=== PATIENT | male | born 1985 | race Caucasian/White ===

== ENCOUNTER 2017-10-22 05:49 | Inpatient (IN) | payer BC ==
[~2017-10-22] VITALS: Ht 182.9 cm; Wt 61.2 kg
[2017-10-22 06:00] VITALS: BP_SYST 138
[2017-10-22 06:35] LABS: BILIRUBIN,URINE 2+ (NEGATIVE); BLOOD, URINE NEGATIVE (NEGATIVE); CLARITY/URINE CLEAR (CLEAR); COLOR,URINE YELLOW (YELLOW); GLUCOSE,URINE NEGATIVE (NEGATIVE); KETONES,URINE 1+ (NEGATIVE); LEUKOCYTE ESTERASE ,URINE NEGATIVE (NEGATIVE); NITRITE, URINE NEGATIVE (NEGATIVE); PH,URINE 5.5 (5.0-8.0); PROTEIN URINE NEGATIVE (NEGATIVE); UROBILINOGEN,URINE 0.2 (0.2-1.0)
[2017-10-22 06:46] LABS: BASOPHILS % (AUTO) 0.5 % (0.0-2.0); EOSINOPHILS # (AUTO) 0.2 K/uL (0.0-0.4); EOSINOPHILS % (AUTO) 2.3 % (0.0-4.0); HEMATOCRIT 46.2 % (36-54); HEMOGLOBIN 15.4 g/dL (14.0-18.0); LYMPHOCYTES # (AUTO) 1.1 K/uL (1.0-5.5); LYMPHOCYTES % (AUTO) 17.1 % (20.5-51.5); MEAN CORPUSCULAR HEMOGLOBIN 30 pg (27-31); MEAN CORPUSCULAR HGB CONC 33 % (32-36); MEAN CORPUSCULAR VOLUME 88 fL (79.0-98.0); MONOCYTES # (AUTO) 0.3 K/uL (0.0-1.0); NEUTROPHILS # (AUTO) 5.1 K/uL (1.8-7.7); NEUTROPHILS % (AUTO) 75.1 % (40.0-70.0); PLATELET COUNT (AUTO) 171 K/uL (130-430); RED BLOOD CELL COUNT(AUTO) 5.22 MIL/uL (4.2-6.2); RED CELL DISTRIBUTION WIDTH 12.4 % (9.0-15.0); WHITE BLOOD COUNT (AUTO) 6.7 K/uL (4.8-10.8)
[2017-10-22 07:01] LABS: CALCIUM 9.4 mg/dL (8.4-11.0); CREATININE 0.86 mg/dL (0.55-1.30); POTASSIUM 3.5 mmol/L (3.5-5.1)
[2017-10-22 07:52] LABS: BACTERIA,URINE FEW /HPF (None Seen); MUCUS,URINE None Seen /LPF (None Seen); RBC,URINE 0-3 /HPF (0-3); WBC,URINE 0-3 /HPF (0-3)
[2017-10-22 08:37] VITALS: BP_SYST 136
[2017-10-22] MEDS ORDERED: METOCLOPRAMIDE HCL 10 MG/2 ML VIAL IVP PRN (09:00)
[2017-10-22] MEDS: D5NS 1,000 ML IV SCH (09:23)
[2017-10-22] MEDS: metroNIDAZOLE 500 mg/NS 100 ML IV SCH ×2 (09:23→18:27)
[2017-10-22] MEDS: LEVOFLOXACIN 500 MG/D5W 100 ML IV SCH (11:02)
[2017-10-22] MEDS: ACETAMINOPHEN 325 MG TABLET PO PRN (11:03)
[2017-10-22 12:00] VITALS: BP_SYST 121
[2017-10-22 16:00] VITALS: BP_SYST 125
[2017-10-22 20:30] VITALS: BP_SYST 136
[2017-10-22 23:18] LABS: BARBITURATE, URINE NEGATIVE (NEG <=200); BENZODIAZEPINE, URINE NEGATIVE (NEG <=150); CANNABINOID, URINE NEGATIVE (NEG <=50); COCAINE, URINE NEGATIVE (NEG <=150); METHAMPHETAMINES SCREEN,URINE NEGATIVE (NEG <=500); OPIATE, URINE NEGATIVE (NEG <=100); PHENCYCLIDINE SCREEN,URINE NEGATIVE (NEG <=25); UR TRICYCLIC ANTIDEPRESSANTS NEGATIVE (NEG <=300); URINE AMPHETAMINE NEGATIVE (NEG <=500); URINE METHADONE NEGATIVE (NEG <=200); URINE OXYCODONE SCREEN NEGATIVE (NEG <=100); URINE PROPOXYPHENE SCREEN NEGATIVE (NEG <=300)
[2017-10-23 01:17] VITALS: BP_SYST 121
[2017-10-23] MEDS: D5NS 1,000 ML IV SCH ×2 (01:21→18:21)
[2017-10-23] MEDS: metroNIDAZOLE 500 mg/NS 100 ML IV SCH ×3 (01:23→18:20)
[2017-10-23 06:40] LABS: ALBUMIN 3.2 g/dL (3.4-4.8); BILIRUBIN,DIRECT 3.3 mg/dL (0.0-0.3); TOTAL BILIRUBIN 4.5 mg/dL (0.0-1.0)
[2017-10-23 06:42] LABS: PROTHROMBIN TIME 10.3 SECS (9.5-12.5)
[2017-10-23] MEDS: LEVOFLOXACIN 500 MG/D5W 100 ML IV SCH (08:34)
[2017-10-23 08:35] VITALS: BP_SYST 115
[2017-10-23 12:00] VITALS: BP_SYST 122
[2017-10-23 13:17] LABS: HEPATITIS B CORE AB, IgM Negative (Negative); HEPATITIS B CORE AB, TOTAL Negative (Negative)
[2017-10-23 17:32] VITALS: BP_SYST 119
[2017-10-23 19:30] VITALS: BP_SYST 117
[2017-10-24] MEDS: metroNIDAZOLE 500 mg/NS 100 ML IV SCH ×3 (00:47→17:33)
[2017-10-24] MEDS: D5NS 1,000 ML IV SCH ×2 (03:16→14:16)
[2017-10-24] MEDS: MORPHINE 2 MG/ML INJ. SYRINGE IVP PRN ×2 (03:34→08:06)
[2017-10-24 07:03] LABS: PROTHROMBIN TIME 10.5 SECS (9.5-12.5)
[2017-10-24 08:13] VITALS: BP_SYST 120
[2017-10-24] MEDS: LEVOFLOXACIN 500 MG/D5W 100 ML IV SCH (09:17)
[2017-10-24 09:50] LABS: HEPATITIS A AB, IgM Negative (Negative)
[2017-10-24 12:30] VITALS: BP_SYST 128
[2017-10-24] MEDS ORDERED: IOHEXOL 100 ML IV ONE (15:13)
[2017-10-24] MEDS ORDERED: LR 1,000 ML IV ONE (15:52)
[2017-10-24] MEDS ORDERED: fentaNYL CITRATE/PF 100 MCG/2 ML AMP IVP PRN (16:00)
[2017-10-24] MEDS ORDERED: DIPHENHYDRAMINE INJ 50 MG/ML VIAL IVP PRN (16:00)
[2017-10-24] MEDS ORDERED: NALBUPHINE HCL 10 MG/ML AMP IVP PRN (16:00)
[2017-10-24] MEDS ORDERED: ONDANSETRON HCL 4 MG/2 ML VIAL IVP PRN ×2 (16:00)
[2017-10-24] MEDS ORDERED: ePHEDrine sulfate 50 MG/ML VIAL IVP PRN (16:00)
[2017-10-24] MEDS ORDERED: NALOXONE HCL 0.4 MG/ML AMP (NARCAN) IVP PRN (16:00)
[2017-10-24] MEDS ORDERED: KETOROLAC TROMETHAMINE 30 MG VIAL IM PRN (16:00)
[2017-10-24 19:55] VITALS: BP_SYST 106
[2017-10-25] MEDS: metroNIDAZOLE 500 mg/NS 100 ML IV SCH ×3 (00:13→16:36)
[2017-10-25] MEDS: D5NS 1,000 ML IV SCH ×2 (00:14→16:36)
[2017-10-25 01:34] VITALS: BP_SYST 101
[2017-10-25 07:00] LABS: PROTHROMBIN TIME 10.6 SECS (9.5-12.5)
[2017-10-25 07:03] LABS: ALBUMIN 3.1 g/dL (3.4-4.8); BILIRUBIN,DIRECT 1.4 mg/dL (0.0-0.3); CALCIUM 8.7 mg/dL (8.4-11.0); CREATININE 0.91 mg/dL (0.55-1.30); POTASSIUM 3.5 mmol/L (3.5-5.1); TOTAL BILIRUBIN 2.1 mg/dL (0.0-1.0)
[2017-10-25 07:18] LABS: BASOPHILS % (AUTO) 0.3 % (0.0-2.0); EOSINOPHILS % (AUTO) 0.5 % (0.0-4.0); HEMATOCRIT 40.2 % (36-54); HEMOGLOBIN 13.6 g/dL (14.0-18.0); LYMPHOCYTES % (AUTO) 10.9 % (20.5-51.5); MEAN CORPUSCULAR HEMOGLOBIN 31 pg (27-31); MEAN CORPUSCULAR HGB CONC 34 % (32-36); MEAN CORPUSCULAR VOLUME 90 fL (79.0-98.0); MONOCYTES # (AUTO) 0.5 K/uL (0.0-1.0); NEUTROPHILS # (AUTO) 7.4 K/uL (1.8-7.7); NEUTROPHILS % (AUTO) 82.3 % (40.0-70.0); PLATELET COUNT (AUTO) 146 K/uL (130-430); RED BLOOD CELL COUNT(AUTO) 4.47 MIL/uL (4.2-6.2); RED CELL DISTRIBUTION WIDTH 12.8 % (9.0-15.0); WHITE BLOOD COUNT (AUTO) 8.9 K/uL (4.8-10.8)
[2017-10-25 08:00] VITALS: BP_SYST 95
[2017-10-25] MEDS: LEVOFLOXACIN 500 MG/D5W 100 ML IV SCH (09:11)
[2017-10-25 12:34] VITALS: BP_SYST 118
[2017-10-25] MEDS ORDERED: MEPERIDINE HCL/PF 50 MG/ML AMP ONE ×2 (13:32→14:40)
[2017-10-25] MEDS ORDERED: MEPERIDINE HCL/PF 25 MG/ML DISP.SYRIN IVP PRN (14:15)
[2017-10-25] MEDS ORDERED: KETOROLAC TROMETHAMINE 30 MG VIAL IVP ONE (14:15)
[2017-10-25] MEDS ORDERED: HYDROmorphone 1 MG INJ. 1 MG/ML AMPUL IVP PRN (14:15)
[2017-10-25] MEDS ORDERED: MIDAZOLAM HCL 5 MG/5 ML VIAL IVP PRN (14:15)
[2017-10-25] MEDS ORDERED: fentaNYL CITRATE/PF 100 MCG/2 ML AMP IVP PRN (14:15)
[2017-10-25] MEDS ORDERED: ONDANSETRON HCL 4 MG/2 ML VIAL IVP ONE (14:15)
[2017-10-25] MEDS ORDERED: NALOXONE HCL 0.4 MG/ML AMP (NARCAN) IVP ONE (14:15)
[2017-10-25] MEDS ORDERED: MEPERIDINE HCL/PF 50 MG/ML AMP IVP ONE (14:40)
[2017-10-25] MEDS: MORPHINE 4 MG/ML INJ. SYRINGE IVP PRN ×2 (16:35→22:27)
[2017-10-25 17:00] VITALS: BP_SYST 121
[2017-10-25] MEDS: MORPHINE 2 MG/ML INJ. SYRINGE IVP PRN (20:15)
[2017-10-25 20:20] VITALS: BP_SYST 107
[2017-10-25] MEDS: ONDANSETRON HCL 4 MG/2 ML VIAL IVP PRN (22:28)
[2017-10-26] MEDS: metroNIDAZOLE 500 mg/NS 100 ML IV SCH ×3 (00:45→17:01)
[2017-10-26 01:20] VITALS: BP_SYST 108
[2017-10-26] MEDS: MORPHINE 2 MG/ML INJ. SYRINGE IVP PRN ×3 (02:25→18:47)
[2017-10-26] MEDS: MORPHINE 4 MG/ML INJ. SYRINGE IVP PRN ×3 (04:22→17:01)
[2017-10-26] MEDS: D5NS 1,000 ML IV SCH ×2 (05:26→21:52)
[2017-10-26 07:05] LABS: BASOPHILS % (AUTO) 0.3 % (0.0-2.0); EOSINOPHILS % (AUTO) 0.1 % (0.0-4.0); HEMATOCRIT 34.3 % (36-54); HEMOGLOBIN 11.9 g/dL (14.0-18.0); LYMPHOCYTES # (AUTO) 1.1 K/uL (1.0-5.5); LYMPHOCYTES % (AUTO) 10.7 % (20.5-51.5); MEAN CORPUSCULAR HEMOGLOBIN 31 pg (27-31); MEAN CORPUSCULAR HGB CONC 35 % (32-36); MEAN CORPUSCULAR VOLUME 89 fL (79.0-98.0); MONOCYTES # (AUTO) 0.6 K/uL (0.0-1.0); MONOCYTES % (AUTO) 6.5 % (1.7-9.3); NEUTROPHILS # (AUTO) 8.2 K/uL (1.8-7.7); NEUTROPHILS % (AUTO) 82.4 % (40.0-70.0); PLATELET COUNT (AUTO) 141 K/uL (130-430); RED BLOOD CELL COUNT(AUTO) 3.84 MIL/uL (4.2-6.2); RED CELL DISTRIBUTION WIDTH 12.7 % (9.0-15.0); WHITE BLOOD COUNT (AUTO) 9.9 K/uL (4.8-10.8)
[2017-10-26 07:23] LABS: CREATININE 1.05 mg/dL (0.55-1.30); POTASSIUM 3.6 mmol/L (3.5-5.1)
[2017-10-26 07:37] LABS: ALBUMIN 2.8 g/dL (3.4-4.8); TOTAL BILIRUBIN 1.6 mg/dL (0.0-1.0)
[2017-10-26 08:00] VITALS: BP_SYST 120
[2017-10-26] MEDS: LEVOFLOXACIN 500 MG/D5W 100 ML IV SCH (10:30)
[2017-10-26 12:45] VITALS: BP_SYST 116
[2017-10-26] MEDS ORDERED: DEXAMETHASONE SOD PHOSPHATE 4 MG/ML VIAL IVP ONE (16:30)
[2017-10-26] MEDS ORDERED: GLYCOPYRROLATE 0.2 MG/ML VIAL IJ ONE (16:30)
[2017-10-26] MEDS ORDERED: MEPERIDINE HCL/PF 25 MG/ML DISP.SYRIN IVP ONE (16:30)
[2017-10-26] MEDS ORDERED: METOCLOPRAMIDE HCL 10 MG/2 ML VIAL IVP ONE (16:30)
[2017-10-26] MEDS ORDERED: NS IRRIG SOLN 1000 ML IR ONE (16:30)
[2017-10-26] MEDS ORDERED: SEVOFLURANE 15 MIN GAS INH ONE (16:30)
[2017-10-26] MEDS ORDERED: SUCCINYLCHOLINE CHLORIDE 20 MG/ML(QUELICIN) IVP ONE (16:30)
[2017-10-26] MEDS ORDERED: ONDANSETRON HCL 4 MG/2 ML VIAL IVP ONE (16:30)
[2017-10-26] MEDS ORDERED: LR 1,000 ML IV.SOLN IV ONE (16:30)
[2017-10-26] MEDS ORDERED: fentaNYL CITRATE 250 MCG/5 ML AMP IV ONE (16:30)
[2017-10-26] MEDS ORDERED: PROPOFOL 200MG/ 20ML VIAL (DIPRIVAN) IV ONE (16:30)
[2017-10-26 17:00] VITALS: BP_SYST 128
[2017-10-26 20:15] VITALS: BP_SYST 119
[2017-10-26] MEDS: ACETAMINOPHEN 325 MG TABLET PO PRN (21:50)
[2017-10-27 00:57] VITALS: BP_SYST 123
[2017-10-27] MEDS: metroNIDAZOLE 500 mg/NS 100 ML IV SCH ×3 (01:10→17:54)
[2017-10-27] MEDS: MORPHINE SULFATE 10 MG/ML VIAL IVP PRN ×3 (04:00→20:12)
[2017-10-27 06:47] LABS: BASOPHILS % (AUTO) 0.2 % (0.0-2.0); CALCIUM 8.7 mg/dL (8.4-11.0); CREATININE 0.87 mg/dL (0.55-1.30); EOSINOPHILS % (AUTO) 0.1 % (0.0-4.0); HEMOGLOBIN 11.9 g/dL (14.0-18.0); LYMPHOCYTES # (AUTO) 0.8 K/uL (1.0-5.5); LYMPHOCYTES % (AUTO) 6.5 % (20.5-51.5); MEAN CORPUSCULAR HEMOGLOBIN 31 pg (27-31); MEAN CORPUSCULAR HGB CONC 34 % (32-36); MEAN CORPUSCULAR VOLUME 90 fL (79.0-98.0); MONOCYTES % (AUTO) 8.2 % (1.7-9.3); NEUTROPHILS # (AUTO) 10.4 K/uL (1.8-7.7); PLATELET COUNT (AUTO) 154 K/uL (130-430); POTASSIUM 3.2 mmol/L (3.5-5.1); RED BLOOD CELL COUNT(AUTO) 3.88 MIL/uL (4.2-6.2); RED CELL DISTRIBUTION WIDTH 12.2 % (9.0-15.0); TOTAL BILIRUBIN 1.8 mg/dL (0.0-1.0); WHITE BLOOD COUNT (AUTO) 12.2 K/uL (4.8-10.8)
[2017-10-27 08:00] VITALS: BP_SYST 125
[2017-10-27] MEDS: MORPHINE 2 MG/ML INJ. SYRINGE IVP PRN (08:25)
[2017-10-27] MEDS: LEVOFLOXACIN 500 MG/D5W 100 ML IV SCH (09:56)
[2017-10-27 11:36] VITALS: BP_SYST 133
[2017-10-27] MEDS ORDERED: POTASSIUM CHLORIDE 20 MEQ TAB.PRT.SR PO ONE (12:30)
[2017-10-27] MEDS: D5NS 1,000 ML IV SCH (12:56)
[2017-10-27] MEDS ORDERED: DOCUSATE SODIUM 250 MG CAPSULE PO ONE (13:00)
[2017-10-27 15:48] VITALS: BP_SYST 110
[2017-10-27 20:05] VITALS: BP_SYST 124
[2017-10-27] MEDS: DOCUSATE SODIUM 250 MG CAPSULE PO SCH (20:11)
[2017-10-27 23:24] VITALS: BP_SYST 122
[2017-10-28] MEDS: metroNIDAZOLE 500 mg/NS 100 ML IV SCH ×3 (00:48→16:06)
[2017-10-28] MEDS: ACETAMINOPHEN 325 MG TABLET PO PRN (02:21)
[2017-10-28 06:57] LABS: BASOPHILS % (AUTO) 0.3 % (0.0-2.0); EOSINOPHILS % (AUTO) 0.1 % (0.0-4.0); HEMATOCRIT 36.1 % (36-54); HEMOGLOBIN 12.2 g/dL (14.0-18.0); LYMPHOCYTES # (AUTO) 1.4 K/uL (1.0-5.5); LYMPHOCYTES % (AUTO) 9.5 % (20.5-51.5); MEAN CORPUSCULAR HEMOGLOBIN 31 pg (27-31); MEAN CORPUSCULAR HGB CONC 34 % (32-36); MEAN CORPUSCULAR VOLUME 90 fL (79.0-98.0); MONOCYTES # (AUTO) 1.2 K/uL (0.0-1.0); MONOCYTES % (AUTO) 8.3 % (1.7-9.3); NEUTROPHILS # (AUTO) 12.4 K/uL (1.8-7.7); NEUTROPHILS % (AUTO) 81.8 % (40.0-70.0); PLATELET COUNT (AUTO) 176 K/uL (130-430); RED CELL DISTRIBUTION WIDTH 12.1 % (9.0-15.0); WHITE BLOOD COUNT (AUTO) 14.9 K/uL (4.8-10.8)
[2017-10-28 07:09] LABS: CALCIUM 9.2 mg/dL (8.4-11.0); CREATININE 1.04 mg/dL (0.55-1.30); POTASSIUM 3.6 mmol/L (3.5-5.1)
[2017-10-28 07:35] LABS: TOTAL BILIRUBIN 2.1 mg/dL (0.0-1.0)
[2017-10-28 08:01] VITALS: BP_SYST 111
[2017-10-28] MEDS: HYDROcodone/ACETAMIN 5-325 MG TAB (NORCO/ VICODIN) PO PRN ×2 (08:17→21:32)
[2017-10-28] MEDS: DOCUSATE SODIUM 250 MG CAPSULE PO SCH ×2 (08:17→21:31)
[2017-10-28] MEDS ORDERED: BISACODYL 10 MG/SUPPOSITORY RC ONE (08:30)
[2017-10-28] MEDS: LEVOFLOXACIN 500 MG/D5W 100 ML IV SCH (09:01)
[2017-10-28 12:00] VITALS: BP_SYST 115
[2017-10-28] MEDS: ONDANSETRON HCL 4 MG/2 ML VIAL IVP PRN (15:14)
[2017-10-28 16:00] VITALS: BP_SYST 118
[2017-10-28 21:30] VITALS: BP_SYST 122
[2017-10-28 23:48] VITALS: BP_SYST 114
[2017-10-29] MEDS: HYDROcodone/ACETAMIN 5-325 MG TAB (NORCO/ VICODIN) PO PRN ×2 (05:58→13:51)
[2017-10-29 07:49] LABS: BASOPHILS % (AUTO) 0.3 % (0.0-2.0); EOSINOPHILS # (AUTO) 0.1 K/uL (0.0-0.4); HEMATOCRIT 34.7 % (36-54); HEMOGLOBIN 11.9 g/dL (14.0-18.0); LYMPHOCYTES # (AUTO) 1.1 K/uL (1.0-5.5); LYMPHOCYTES % (AUTO) 10.4 % (20.5-51.5); MEAN CORPUSCULAR HEMOGLOBIN 31 pg (27-31); MEAN CORPUSCULAR HGB CONC 34 % (32-36); MEAN CORPUSCULAR VOLUME 90 fL (79.0-98.0); MONOCYTES # (AUTO) 0.8 K/uL (0.0-1.0); MONOCYTES % (AUTO) 7.9 % (1.7-9.3); NEUTROPHILS # (AUTO) 8.5 K/uL (1.8-7.7); NEUTROPHILS % (AUTO) 80.4 % (40.0-70.0); PLATELET COUNT (AUTO) 224 K/uL (130-430); RED BLOOD CELL COUNT(AUTO) 3.88 MIL/uL (4.2-6.2); RED CELL DISTRIBUTION WIDTH 12.1 % (9.0-15.0); WHITE BLOOD COUNT (AUTO) 10.5 K/uL (4.8-10.8)
[2017-10-29 08:00] VITALS: BP_SYST 118
[2017-10-29 08:19] LABS: ALBUMIN 2.7 g/dL (3.4-4.8); CREATININE 0.9 mg/dL (0.55-1.30); POTASSIUM 3.6 mmol/L (3.5-5.1); TOTAL BILIRUBIN 1.2 mg/dL (0.0-1.0)
[2017-10-29] MEDS: DOCUSATE SODIUM 250 MG CAPSULE PO SCH (09:00)
[2017-10-29 11:31] VITALS: BP_SYST 112
[2017-10-29 15:32] VITALS: BP_SYST 110
[2017-10-29 16:37] VITALS: BP_SYST 110
== END 2017-10-29 17:00 | disposition home or self-care (01) | DRG 417 ==
LOC: SED 05:49 → SMU 08:17
PROVIDERS: ADMIT Internal Medicine Hospice and Palliative Medicine; ATTEND Internal Medicine Hospice and Palliative Medicine
PROC: BF131ZZ Fluoroscopy of Gallbladder and Bile Ducts using Low Osmolar Contrast (ICD-10-PCS; 2017-10-24)
PROC: 0FC98ZZ Extirpation of Matter from Common Bile Duct, Via Natural or Artificial Opening Endoscopic (ICD-10-PCS; principal; 2017-10-24 15:00)
PROC: 0FT44ZZ Resection of Gallbladder, Percutaneous Endoscopic Approach (ICD-10-PCS; 2017-10-25)
PROC: 0DNU4ZZ Release Omentum, Percutaneous Endoscopic Approach (ICD-10-PCS; 2017-10-25)
DX: K80.62 Calculus of gallbladder and bile duct with acute cholecystitis without obstruction (principal); K85.90 Acute pancreatitis without necrosis or infection, unspecified; R79.89 Other specified abnormal findings of blood chemistry; R74.0 Nonspecific elevation of levels of transaminase and lactic acid dehydrogenase [LDH]; Z90.49 Acquired absence of other specified parts of digestive tract
CPT/HCPCS: 36415; 74181; 74330-TC; 76700-TC; 78226; 80053; 80076; 80307; 81000-TC; 82150-TC; 83690-TC; 85025; 85610-TC; 86704; 86705; 86709; 87081; 88304; 99285; A9537; C1769; J0330; J1100; J1956; J2175; J2270; J2405; J2704; J2765; J3010; J3490; J7042; J7120; Q9967